=== PATIENT | female | born 1985 | race Caucasian/White ===

== ENCOUNTER 2024-02-08 04:03 | Inpatient (IN) ==
[2024-02-08 05:13] LABS: Urine Appearance Clear; Urine Bilirubin Negative (Negative); Urine Blood 2+ (Negative); Urine Color Light-Yellow; Urine Glucose Negative (Negative); Urine Ketones Negative (Negative); Urine Nitrite Negative (Negative); Urine Protein Negative (Negative); Urine Specific Gravity 1.018 (1.002-1.030); Urine Urobilinogen Negative (Negative)
[2024-02-08 05:17] LABS: Urine Bacteria Absent /HPF (Absent); Urine Red Blood Cell 3+(>10/hpf) /HPF (0-Trace); Urine Squamous Epithelial Cell Present /HPF (Absent); Urine White Blood Cell 1+(6-10/hpf) /HPF (0-Trace)
[2024-02-08 05:22] LABS: Urine Benzodiazepine Screen None Detected (None Detect); Urine Cannabinoids Screen None Detected (None Detect); Urine Opiates Screen None Detected (None Detect)
[2024-02-08] MEDS: Penicillin G Potassium IV 5,000,000 UNITS in NS 0.9% 100 ml BAG 100 ML IVPB ONE (05:30)
[2024-02-08] MEDS: Lactated Ringers 1000 ml BAG 1,000 ML IV ONE ×2 (05:31→07:38)
[2024-02-08 05:58] LABS: ABS Lymphocytes 0.8 10^3/uL (1.0-4.8); ABS Monocytes 0.8 10^3/uL (0.0-0.9); ABS Neutrophils 14.4 10^3/uL (1.5-7.6); ABS Nucleated RBC 0.01 10^3/ul; Eosinophil % 0.3 %; Lymphocyte % 5.2 %; Mean Corpuscular Hgb Conc 34.3 g/dL (31-36); Mean Corpuscular Volume 90.5 fL (80-97); Mean Platelet Volume 12.2 fL (7.5-11.2); Platelet Count 126 10^3/uL (150-450); Red Blood Count 3.87 10^6/uL (3.63-4.92); Red Cell Distribution Width 13.5 % (12-17); White Blood Count 16.1 10^3/uL (3.8-11.8)
[2024-02-08] MEDS: Lactated Ringers 1000 ml BAG 1,000 ML IV SCH ×2 (06:18→07:40)
[2024-02-08] MEDS ORDERED: Phenylephrine 40 mcg/mL 10mL (400mcg) SYRINGE IV PUSH PRN (07:15)
[2024-02-08] MEDS ORDERED: Sodium Citrate/Citric Acid LIQ 15 ML UDC PO PRN (07:15)
[2024-02-08] MEDS: Phenylephrine 40 mcg/mL 10mL (400mcg) SYRINGE IV PUSH PRN (07:32)
[2024-02-08] MEDS: Buffered Lidocaine 1% SYRIN 1 ml INTRADERM ONE (07:36)
[2024-02-08] MEDS: Lidocaine 1.5% EPI 1:200,000 30 ML SDV ONE ×2 (07:36→07:38)
[2024-02-08] MEDS: OBEPIDURAL (200 ML) 200 ML EPIDURAL SCH (07:39)
[2024-02-08] MEDS: OBEPIDURAL (200 ML) 200 ML EPIDURAL ONE (07:40)
[2024-02-08 08:50] LABS: Urine Appearance Clear; Urine Bilirubin Negative (Negative); Urine Blood Negative (Negative); Urine Color Yellow; Urine Glucose Negative (Negative); Urine Ketones 1+ (Negative); Urine Nitrite Negative (Negative); Urine Protein Trace (Negative); Urine Specific Gravity 1.032 (1.002-1.030); Urine Urobilinogen Negative (Negative); Urine pH 6.5 (5.0-8.0)
[2024-02-08] MEDS: Penicillin G Potassium IV 3,000,000 UNITS in NS 0.9% 100 ml BAG 100 ML IVPB SCH (09:32)
[2024-02-08] MEDS: Oxytocin in LR 20,000 MILLI.UNIT/1,000 ML BAG IV SCH ×2 (14:14→18:00)
[2024-02-08] MEDS: Lidocaine 1% VIAL 10 MG/ML 30 ML VIAL INJ PRN (18:11)
[2024-02-08] MEDS ORDERED: Lactated Ringers 1000 ml BAG 1,000 ML IV SCH (19:00)
[2024-02-08] MEDS: Dibucaine 1% OINT 28.35 GM TUBE PR PRN (22:30)
[2024-02-08] MEDS: Witch Hazel PAD JAR TOPICAL PRN (22:30)
[2024-02-09 07:35] LABS: ABS Eosinophils 0.1 10^3/uL (0.0-0.5); ABS Lymphocytes 1.1 10^3/uL (1.0-4.8); ABS Monocytes 0.8 10^3/uL (0.0-0.9); ABS Neutrophils 14.7 10^3/uL (1.5-7.6); Eosinophil % 0.9 %; Hematocrit 32.5 % (35-45); Hemoglobin 11.1 g/dL (11.5-14.3); Lymphocyte % 6.6 %; Mean Corpuscular Hemoglobin 31.4 pg (27-33); Mean Corpuscular Hgb Conc 34.2 g/dL (31-36); Mean Corpuscular Volume 91.9 fL (80-97); Mean Platelet Volume 11.9 fL (7.5-11.2); Platelet Count 120 10^3/uL (150-450); Red Blood Count 3.54 10^6/uL (3.63-4.92); Red Cell Distribution Width 13.5 % (12-17); White Blood Count 16.8 10^3/uL (3.8-11.8)
[2024-02-10 07:49] VITALS: BP 120/65
== END 2024-02-10 14:45 | disposition home or self-care (01) | DRG 807 ==
LOC: MCHOBOUT 04:03 → MCHOB 05:35
PROVIDERS: ADMIT Midwife; ATTEND Midwife